=== PATIENT | female | born 1990 | race African-American/Black ===

== ENCOUNTER 2017-02-21 08:01 | Emergency (ER) | payer MEDICAID ==
[~2017-02-21] VITALS: Ht 157.5 cm; Wt 51.6 kg
[~2017-02-21 08:01] MED LIST: DOXY100V9 PO; HYDR1TAB12 PO
[2017-02-21] MEDS ORDERED: FAMOTIDINE 20 MG/2 ML ONE (08:37)
[2017-02-21] MEDS ORDERED: MORPHINE SULFATE 4 MG/ML, 1ML ONE (08:37)
[2017-02-21] MEDS ORDERED: ONDANSETRON 2MG/ML, 2ML ONE (08:37)
[2017-02-21 08:59] LABS: HEMOGLOBIN 14.5 g/dL (11.7-16.4)
[2017-02-21] MEDS ORDERED: ONDANSETRON 2MG/ML, 2ML IVPush ONE (09:00)
[2017-02-21] MEDS ORDERED: SODIUM CHLORIDE 0.9% 1,000ML IVBOLUS ONE (09:00)
[2017-02-21] MEDS ORDERED: MORPHINE SULFATE 4 MG/ML, 1ML IVPush PRN (09:00)
[2017-02-21] MEDS ORDERED: SODIUM CHLORIDE FLUSH 10ML SYR IVF ONE (09:00)
[2017-02-21] MEDS ORDERED: FAMOTIDINE 20 MG/2 ML IVP ONE (09:00)
[2017-02-21 09:13] LABS: ASPARTATE AMINO TRANSFERASE 18 U/L (15-37); BLOOD UREA NITROGEN 11 mg/dL (7-18)
[2017-02-21 11:41] VITALS: BP 115/60
== END 2017-02-21 11:44 | disposition home or self-care (01) ==
LOC: ED 09:52
DX: K29.00 Acute gastritis without bleeding (principal); R10.13 Epigastric pain; Z87.440 Personal history of urinary (tract) infections
CPT/HCPCS: 36415; 76700; 80053; 81001; 83690; 84703; 85025; 96361; 96374; 96375; 99285; J2405; J7030; S0028

== ENCOUNTER 2017-11-21 21:00 | Emergency (ER) | payer OTHER ==
[~2017-11-21] VITALS: Ht 154.9 cm; Wt 50.1 kg
[~2017-11-21 21:00] MED LIST changes: +BIRTH CONTROL PILLS PO; +OMEP-110 PO
[2017-11-21] MEDS ORDERED: SODIUM CHLORIDE FLUSH 10ML SYR IVF ONE (21:30)
[2017-11-21] MEDS ORDERED: ONDANSETRON 2MG/ML, 2ML IVPush ONE (21:30)
[2017-11-21] MEDS ORDERED: SODIUM CHLORIDE 0.9% 1,000ML IVBOLUS ONE (21:30)
[2017-11-21] MEDS ORDERED: ONDANSETRON 2MG/ML, 2ML ONE ×2 (21:52→23:56)
[2017-11-21] MEDS ORDERED: MORPHINE SULFATE 4 MG/ML, 1ML ONE (22:15)
[2017-11-21 22:16] LABS: BASOPHILS # (AUTO) 0.06 x10^3/uL (0-0.1); BASOPHILS % (AUTO) 1 % (0-1); EOSINOPHILS # (AUTO) 0.01 x10^3/uL (0-0.4); EOSINOPHILS % (AUTO) 0 % (1-7); LYMPHOCYTES # (AUTO) 1.15 x10^3/uL (1-3.4); LYMPHOCYTES % (AUTO) 10 % (22-44); MD NO; MEAN CORPUSCULAR HEMOGLOBIN 32.9 pg (27.0-34.8); MEAN CORPUSCULAR HGB CONC 33.8 g/dL (32.4-35.8); MEAN CORPUSCULAR VOLUME 97.4 fL (80-100); MEAN PLATELET VOLUME 8.5 fL (7.4-10.4); MONOCYTES % (AUTO) 5 % (2-9); NEUTROPHILS # (AUTO) 9.73 x10^3/uL (1.8-6.8); NEUTROPHILS % (AUTO) 84 % (42-75); PLATELET COUNT 199 x10^3/uL (130-400); RED BLOOD COUNT 4.53 x10^6/uL (3.82-5.3); RED CELL DISTRIBUTION WIDTH 12.5 % (9.6-15.2)
[2017-11-21] MEDS ORDERED: HYDROmorphone 2 MG/ML, 1ML ONE (22:18)
[2017-11-21 22:28] LABS: ALBUMIN 3.7 g/dL (3.4-5.0); ANION GAP 10 mmol/L (5-15); CALCIUM 8.8 mg/dL (8.5-10.1); CHLORIDE 103 mmol/L (98-107)
[2017-11-21] MEDS ORDERED: HYDROmorphone 1 MG/ML, 1ML IV ONE (22:30)
[2017-11-21 22:33] LABS: ALANINE AMINOTRANSFERASE 24 U/L (12-78); ALKALINE PHOSPHATASE 68 U/L (45-117); BILIRUBIN,TOTAL 0.3 mg/dL (0.2-1.0); TOTAL PROTEIN 7.6 g/dL (6.4-8.2)
[2017-11-21 22:36] LABS: CREATININE 0.74 mg/dL (0.55-1.02)
[2017-11-21] MEDS ORDERED: MAALOX/HYOSCYAMINE/LIDOCAINE 45 ML BTL PO ONE (23:30)
[2017-11-21] MEDS ORDERED: MAALOX/HYOSCYAMINE/LIDOCAINE 45 ML BTL ONE (23:31)
[2017-11-21] MEDS ORDERED: ZIPRASIDONE 20 MG INJ IM ONE (23:55)
[2017-11-22] MEDS ORDERED: ONDANSETRON 2MG/ML, 2ML IVPush ONE
[2017-11-22] MEDS ORDERED: ZIPRASIDONE 20 MG INJ IM ONE
[2017-11-22 01:08] LABS: MICROSCOPIC INDICATED
[2017-11-22 01:29] LABS: CULTURE INDICATED? NO
[2017-11-22 01:54] VITALS: BP 93/55
== END 2017-11-22 01:58 | disposition home or self-care (01) ==
LOC: ED 23:59
DX: E86.0 Dehydration (principal); R11.2 Nausea with vomiting, unspecified; R10.13 Epigastric pain
CPT/HCPCS: 36415; 80053; 81001; 83690; 84703; 85025; 96361; 96372; 96374; 96375; 96376; 99285; J1170; J2405; J3486; J7030

== ENCOUNTER 2017-11-22 05:12 | Emergency (ER) | payer SELFPAY ==
[~2017-11-22] VITALS: Ht 154.9 cm; Wt 51.1 kg
[2017-11-22] MEDS ORDERED: ONDANSETRON 2MG/ML, 2ML ONE (06:12)
[2017-11-22] MEDS ORDERED: MAALOX/HYOSCYAMINE/LIDOCAINE 45 ML BTL ONE (06:12)
[2017-11-22] MEDS ORDERED: LORazepam 2 MG/ML, 1ML ONE (06:13)
[2017-11-22] MEDS ORDERED: FAMOTIDINE 20 MG/2 ML ONE (06:13)
[2017-11-22] MEDS ORDERED: MAALOX/HYOSCYAMINE/LIDOCAINE 45 ML BTL PO ONE (06:30)
[2017-11-22] MEDS ORDERED: ONDANSETRON 2MG/ML, 2ML IVPush ONE (06:30)
[2017-11-22] MEDS ORDERED: LORazepam 2 MG/ML, 1ML IVPush ONE (06:30)
[2017-11-22] MEDS ORDERED: SODIUM CHLORIDE 0.9% 1,000ML IVBOLUS ONE (06:30)
[2017-11-22] MEDS ORDERED: FAMOTIDINE 20 MG/2 ML IVP ONE (06:30)
[2017-11-22] MEDS ORDERED: SODIUM CHLORIDE FLUSH 10ML SYR IVF ONE (06:30)
[2017-11-22 07:09] VITALS: BP 100/63
== END 2017-11-22 08:01 | disposition home or self-care (01) ==
LOC: ED 06:26
DX: K29.50 Unspecified chronic gastritis without bleeding (principal); F12.10 Cannabis abuse, uncomplicated
CPT/HCPCS: 76700; 93005; 96361; 96374; 96375; 99284; J2060; J2405; J7030; S0028

== ENCOUNTER 2019-12-17 00:46 | Emergency (ER) | payer MEDICAID ==
[~2019-12-17] VITALS: Ht 157.5 cm; Wt 65.0 kg
[~2019-12-17 00:46] MED LIST changes: -HYDR1TAB12 PO; +HYDR1TAB13 PO
--- NOTE | 2019-12-17 00:50 | NUR ---
TASK RN: CONCETTA DOMÍNGUEZ FROM HOME WHERE PT WAS FOUND BY FAMILY/SO UNARROUSABLE W/ RA OF 60%. GIVEN 0.5MG NARCAN W/ POSITIVE EFFECT. FSBS 145. PT ARRIVES A&OX4; SPEECH CLEAR AND MOVING ALL EXTREMITIES. DENIES N/V/PAIN. BP/SPO2/ECG MONITORING IN PLACE. SINUS TACH ON MONITOR. EKG COMPLETED UPON ARRIVAL. FAMILY/SO AT BEDSIDE. ERP IN FOR INITIAL ASSESSMENT. REPORT TO LOIDA BARRERA
[2019-12-17] MEDS ORDERED: NALOXONE 0.4 MG/ML, 1ML IVPush PRN (01:00)
[2019-12-17] MEDS ORDERED: SODIUM CHLORIDE 0.9% 1,000ML IVBOLUS ONE (01:00)
[2019-12-17] MEDS ORDERED: ONDANSETRON 2MG/ML, 2ML ONE (01:37)
[2019-12-17 01:40] VITALS: BP 117/83
[2019-12-17 01:47] LABS: BASOPHILS # (AUTO) 0.04 x10^3/uL (0-0.1); BASOPHILS % (AUTO) 0 % (0-1); EOSINOPHILS # (AUTO) 0.24 x10^3/uL (0-0.4); EOSINOPHILS % (AUTO) 2 % (1-7); LYMPHOCYTES # (AUTO) 2.27 x10^3/uL (1-3.4); LYMPHOCYTES % (AUTO) 18 % (22-44); MD NO; MEAN CORPUSCULAR HEMOGLOBIN 33.3 pg (27.0-34.8); MEAN CORPUSCULAR HGB CONC 33.6 g/dL (32.4-35.8); MEAN CORPUSCULAR VOLUME 99.2 fL (80-100); MEAN PLATELET VOLUME 7.8 fL (7.4-10.4); MONOCYTES # (AUTO) 0.72 x10^3/uL (0.2-0.8); MONOCYTES % (AUTO) 6 % (2-9); NEUTROPHILS # (AUTO) 9.73 x10^3/uL (1.8-6.8); NEUTROPHILS % (AUTO) 75 % (42-75); PLATELET COUNT 347 x10^3/uL (130-400); RED BLOOD COUNT 4.66 x10^6/uL (3.82-5.3); RED CELL DISTRIBUTION WIDTH 13.2 % (9.6-15.2)
[2019-12-17 01:58] LABS: ALANINE AMINOTRANSFERASE 21 U/L (12-78); ALBUMIN 3.9 g/dL (3.4-5.0); ANION GAP 9 mmol/L (5-15); CALCIUM 7.9 mg/dL (8.5-10.1); CHLORIDE 108 mmol/L (98-107)
[2019-12-17] MEDS ORDERED: ONDANSETRON 2MG/ML, 2ML IVPush ONE (02:00)
[2019-12-17 02:03] LABS: ALKALINE PHOSPHATASE 103 U/L (45-117); BILIRUBIN,TOTAL 0.2 mg/dL (0.2-1.0); CREATININE 0.91 mg/dL (0.55-1.02); TOTAL PROTEIN 8.1 g/dL (6.4-8.2)
[2019-12-17] MEDS ORDERED: PROMETHAZINE 25 MG/ML, 1ML ONE (02:19)
--- NOTE | 2019-12-17 02:25 | NUR ---
TASK RN: PT AMBULATED STEADILY TO BATHROOM TO PROVIDE UA. PT ATTEMPTED TO PROVIDE UA, UNSUCCESSFUL AT THIS TIME. PT W/ MULTIPLE EPISODES OF VOMITING. ERP AWARE. ORDERS RECEIVED. PT MEDICATED PER EMAR. IVF CONTINUES TO INFUSE
[2019-12-17] MEDS ORDERED: PROMETHAZINE 25 MG/ML, 1ML IM ONE (02:30)
[2019-12-17 03:29] LABS: AMPHETAMINE SCREEN, URINE Negative (Negative); BARBITURATE SCREEN, URINE Negative (Negative); BENZODIAZEPINE SCREEN, URINE Negative (Negative); CANNABINOID SCREEN, URINE Positive (Negative); COCAINE SCREEN, URINE Positive (Negative); METHADONE SCREEN, URINE Negative (Negative); OPIATE SCREEN, URINE Negative (Negative)
== END 2019-12-17 03:47 | disposition home or self-care (01) ==
LOC: ED 01:38
DX: T40.7X1A Poisoning by cannabis (derivatives), accidental (unintentional), initial encounter (principal); T40.5X1A Poisoning by cocaine, accidental (unintentional), initial encounter; F17.200 Nicotine dependence, unspecified, uncomplicated; Y92.009 Unspecified place in unspecified non-institutional (private) residence as the place of occurrence of the external cause
CPT/HCPCS: 36415; 71045; 80053; 80307; 84703; 85025; 93005; 96372; 96374; 99284; J2405; J2550; J7030

== ENCOUNTER 2019-12-19 23:40 | Emergency (ER) | payer MEDICAID ==
[~2019-12-19] VITALS: Ht 157.5 cm; Wt 62.3 kg
[2019-12-20] MEDS ORDERED: PROMETHAZINE 25 MG/ML, 1ML ONE (00:17)
[2019-12-20] MEDS ORDERED: FAMOTIDINE 20 MG/2 ML ONE (00:17)
[2019-12-20] MEDS ORDERED: MAALOX/HYOSCYAMINE/LIDOCAINE 45 ML BTL ONE (00:17)
[2019-12-20] MEDS ORDERED: PROMETHAZINE 25 MG/ML, 1ML IM ONE (00:30)
[2019-12-20] MEDS ORDERED: SODIUM CHLORIDE FLUSH 10ML SYR IVF ONE (00:30)
[2019-12-20] MEDS ORDERED: MAALOX/HYOSCYAMINE/LIDOCAINE 45 ML BTL PO ONE (00:30)
[2019-12-20] MEDS ORDERED: FAMOTIDINE 20 MG/2 ML IVPush ONE (00:30)
[2019-12-20 00:40] LABS: BASOPHILS # (AUTO) 0.01 x10^3/uL (0-0.1); BASOPHILS % (AUTO) 0 % (0-1); EOSINOPHILS % (AUTO) 0 % (1-7); LYMPHOCYTES # (AUTO) 0.71 x10^3/uL (1-3.4); LYMPHOCYTES % (AUTO) 9 % (22-44); MD NO; MEAN CORPUSCULAR HGB CONC 33.6 g/dL (32.4-35.8); MEAN CORPUSCULAR VOLUME 98.1 fL (80-100); MEAN PLATELET VOLUME 8.5 fL (7.4-10.4); MONOCYTES # (AUTO) 0.16 x10^3/uL (0.2-0.8); MONOCYTES % (AUTO) 2 % (2-9); NEUTROPHILS # (AUTO) 7.44 x10^3/uL (1.8-6.8); NEUTROPHILS % (AUTO) 90 % (42-75); PLATELET COUNT 330 x10^3/uL (130-400); RED BLOOD COUNT 4.66 x10^6/uL (3.82-5.3); RED CELL DISTRIBUTION WIDTH 12.6 % (9.6-15.2)
[2019-12-20 00:41] LABS: ALANINE AMINOTRANSFERASE 19 U/L (12-78); ALBUMIN 4.1 g/dL (3.4-5.0); ANION GAP 11 mmol/L (5-15); CALCIUM 9.2 mg/dL (8.5-10.1); CHLORIDE 106 mmol/L (98-107); CREATININE 0.87 mg/dL (0.55-1.02)
--- NOTE | 2019-12-20 00:41 | NUR ---
pt was in some distress with pain, repeatedly asking for pain medications. pt medicated for nausea and upset stomach. pt now resting on gurney with eyes closed in no distress. respirations even and unlabored. pt attached to bp and o2 monitors.
[2019-12-20 00:45] LABS: BILIRUBIN,TOTAL 0.5 mg/dL (0.2-1.0)
[2019-12-20 00:46] LABS: ALKALINE PHOSPHATASE 95 U/L (45-117); TOTAL PROTEIN 8.2 g/dL (6.4-8.2)
--- NOTE | 2019-12-20 01:25 | NUR ---
BREAK RN: PT. MEDICATED PER JAN. VS UPDATED. PT. MOANING IN PAIN, CONTINUES TO C/O NAUSEA BUT ABLE TO DRINK GI COCKTAIL WITHOUT VOMITING THUS FAR. MONITORS IN PLACE. CALL LIGHT IN REACH. FAMILY AT FOR SUPPORT. CHART UP FOR RECHECK BY ERP.
--- NOTE | 2019-12-20 01:45 | NUR ---
care transferred to poilna méndez
[2019-12-20] MEDS ORDERED: HYDROmorphone 2 MG/ML, 1ML ONE (01:53)
[2019-12-20] MEDS ORDERED: HYDROmorphone 2 MG/ML, 1ML IVPush ONE (02:00)
[2019-12-20] MEDS ORDERED: SODIUM CHLORIDE 0.9%, 500ML IVBOLUS ONE (02:00)
--- NOTE | 2019-12-20 02:01 | NUR ---
REPORT RECEIVED FROM LOIDA COREAS. PLAN OF CARE DISCUSSED. PATIENT MEDICATED PER EMAR, TOELRATED WELL. IVF RUNNING AT THIS TIME
--- NOTE | 2019-12-20 02:04 | NUR ---
PATIENT DESAT TO 85% AFTER PAIN MEDICATION GIVEN, PLACED ON 2L NC. UP TO 99%. VSS, NAD, PATIENT RESTING ON GURNEY.
--- NOTE | 2019-12-20 02:50 | NUR ---
IVF RUNNING, ARM REPOSITIONED TO ALLOW FOR FLUIDS TO RUN. VSS, NAD, DENIES NEEDS AT THIS TIME. CALL LIGHT IN REACH
[2019-12-20 03:06] VITALS: BP 106/55
--- NOTE | 2019-12-20 03:06 | NUR ---
PATIENT ABLE TO KEEP FLUIDS DOWN
== END 2019-12-20 03:41 | disposition home or self-care (01) ==
LOC: ED 12-20 00:03
DX: K29.20 Alcoholic gastritis without bleeding (principal); R11.2 Nausea with vomiting, unspecified; F10.10 Alcohol abuse, uncomplicated; Y90.0 Blood alcohol level of less than 20 mg/100 ml
CPT/HCPCS: 36415; 80053; 83690; 84703; 85025; 96361; 96372; 96374; 96375; 99283; J1170; J2550; J3490; J7040

== ENCOUNTER 2019-12-20 18:24 | Inpatient (IN) | payer MEDICAID ==
[~2019-12-20] VITALS: Ht 157.5 cm; Wt 64.4 kg
--- NOTE | 2019-12-20 19:00 | NUR ---
Pt ambulatory to room. Pt reports abd pain (epigastric), nausea and vomiting. Pt report she was here yesterday and has gastritis. Pt friend reports diaudid was the only medication that worked. Pt reports she didn't get any imaging done yesterday. Pt is alert and oriented. Pt abd soft with hypoactive BS. Pt changing into gown. Urine sample at bedside.
[2019-12-20] MEDS ORDERED: HYDROmorphone 2 MG/ML, 1ML IVPush PRN (19:30)
[2019-12-20] MEDS ORDERED: ONDANSETRON 2MG/ML, 2ML IVPush ONE (19:30)
[2019-12-20] MEDS ORDERED: SODIUM CHLORIDE 0.9% 1,000ML IVBOLUS ONE (19:30)
[2019-12-20] MEDS ORDERED: SODIUM CHLORIDE FLUSH 10ML SYR IVF ONE (19:30)
[2019-12-20] MEDS ORDERED: ONDANSETRON 2MG/ML, 2ML ONE (19:39)
[2019-12-20] MEDS ORDERED: HYDROmorphone 1 MG/ML, 1ML INJ ONE (19:40)
[2019-12-20 19:44] LABS: BASOPHILS # (AUTO) 0.02 x10^3/uL (0-0.1); BASOPHILS % (AUTO) 0 % (0-1); EOSINOPHILS # (AUTO) 0.01 x10^3/uL (0-0.4); EOSINOPHILS % (AUTO) 0 % (1-7); LYMPHOCYTES # (AUTO) 1.27 x10^3/uL (1-3.4); LYMPHOCYTES % (AUTO) 12 % (22-44); MD NO; MEAN CORPUSCULAR HEMOGLOBIN 33.3 pg (27.0-34.8); MEAN CORPUSCULAR HGB CONC 33.7 g/dL (32.4-35.8); MEAN CORPUSCULAR VOLUME 98.6 fL (80-100); MEAN PLATELET VOLUME 8.3 fL (7.4-10.4); MONOCYTES % (AUTO) 4 % (2-9); NEUTROPHILS # (AUTO) 9.38 x10^3/uL (1.8-6.8); NEUTROPHILS % (AUTO) 85 % (42-75); PLATELET COUNT 317 x10^3/uL (130-400); RED BLOOD COUNT 4.41 x10^6/uL (3.82-5.3); RED CELL DISTRIBUTION WIDTH 12.9 % (9.6-15.2)
[2019-12-20 19:51] LABS: ALBUMIN 3.8 g/dL (3.4-5.0); ANION GAP 8 mmol/L (5-15); CALCIUM 8.6 mg/dL (8.5-10.1); CHLORIDE 108 mmol/L (98-107)
--- NOTE | 2019-12-20 19:53 | NUR ---
PIV started. Pt medicated per JAN. Pt placed on pulse ox/HR monitor. Pt does report marijuana use.
[2019-12-20 19:57] LABS: ALANINE AMINOTRANSFERASE 22 U/L (12-78); ALKALINE PHOSPHATASE 81 U/L (45-117); BILIRUBIN,TOTAL 0.5 mg/dL (0.2-1.0); CREATININE 0.86 mg/dL (0.55-1.02); TOTAL PROTEIN 7.5 g/dL (6.4-8.2)
[2019-12-20 20:05] LABS: CULTURE INDICATED? YES; MICROSCOPIC INDICATED
[2019-12-20] MEDS ORDERED: CEFTRIAXONE PMX 1GM/50ML 50 ML ONE (20:42)
--- NOTE | 2019-12-20 20:50 | NUR ---
Pt to CT.
--- NOTE | 2019-12-20 20:50 | NUR ---
Pt resting quietly on gurney. Pt reports she feels better. IV antibiotics started. VS retaken.
[2019-12-20] MEDS ORDERED: CEFTRIAXONE PMX 1GM/50ML 50 ML IV ONE (21:00)
[2019-12-20] MEDS ORDERED: OMNIPAQUE 350 MG/ML, 100ML BOTTLE ONE (21:02)
--- NOTE | 2019-12-20 21:12 | NUR ---
Pt returned from CT.
--- NOTE | 2019-12-20 21:20 | NUR ---
Pt given ice chips by
--- NOTE | 2019-12-20 21:41 | NUR ---
Admitting MD at bedside.
--- NOTE | 2019-12-20 21:48 | NUR ---
Report given to LOIDA Fleming
[2019-12-20] MEDS ORDERED: PROMETHAZINE 25 MG/ML, 1ML IM PRN (22:00)
[2019-12-20] MEDS ORDERED: GABAPENTIN 300 MG CAPSULE PO PRN (22:00)
[2019-12-20] MEDS ORDERED: POTASSIUM CHLORIDE 40 MEQ in SODIUM CHLORIDE 0.9% 500 ML IV ONE (22:00)
[2019-12-20] MEDS ORDERED: ACETAMINOPHEN 325 MG TABLET PO PRN (22:00)
[2019-12-20] MEDS ORDERED: ONDANSETRON 2MG/ML, 2ML IVPush PRN (22:00)
--- NOTE | 2019-12-20 22:01 | NUR ---
Pt alert, oriented and resting on gurney at time of d/c.
[2019-12-20 22:05] VITALS: BP 99/59
[2019-12-20 22:32] LABS: AMPHETAMINE SCREEN, URINE Negative (Negative); BARBITURATE SCREEN, URINE Negative (Negative); BENZODIAZEPINE SCREEN, URINE Positive (Negative); CANNABINOID SCREEN, URINE Positive (Negative); COCAINE SCREEN, URINE Positive (Negative); METHADONE SCREEN, URINE Negative (Negative); OPIATE SCREEN, URINE Positive (Negative)
[2019-12-21 00:30] VITALS: BP 100/64
[2019-12-21] MEDS: HYDROmorphone 2 MG/ML, 1ML IVPush PRN ×2 (02:16→07:53)
[2019-12-21] MEDS: LACTATED RINGERS 1,000 ML IV SCH ×2 (05:28→15:28)
[2019-12-21 05:42] LABS: MEAN CORPUSCULAR HEMOGLOBIN 33.3 pg (27.0-34.8); MEAN CORPUSCULAR HGB CONC 33.6 g/dL (32.4-35.8); MEAN CORPUSCULAR VOLUME 99.2 fL (80-100); MEAN PLATELET VOLUME 8.6 fL (7.4-10.4); PLATELET COUNT 282 x10^3/uL (130-400); RED BLOOD COUNT 3.85 x10^6/uL (3.82-5.3); RED CELL DISTRIBUTION WIDTH 12.9 % (9.6-15.2)
[2019-12-21 05:49] LABS: ANION GAP 5 mmol/L (5-15); CALCIUM 7.5 mg/dL (8.5-10.1); CHLORIDE 112 mmol/L (98-107); CREATININE 0.72 mg/dL (0.55-1.02)
[2019-12-21 06:06] LABS: MD SCAN
[2019-12-21 06:07] LABS: BASOPHILS # (AUTO) 0.03 x10^3/uL (0-0.1); BASOPHILS % (AUTO) 0 % (0-1); EOSINOPHILS % (AUTO) 1 % (1-7); LYMPHOCYTES # (AUTO) 2.93 x10^3/uL (1-3.4); LYMPHOCYTES % (AUTO) 33 % (22-44); MONOCYTES # (AUTO) 0.61 x10^3/uL (0.2-0.8); MONOCYTES % (AUTO) 7 % (2-9); NEUTROPHILS # (AUTO) 5.12 x10^3/uL (1.8-6.8); NEUTROPHILS % (AUTO) 58 % (42-75)
[2019-12-21] MEDS: FAMOTIDINE 20 MG TABLET PO SCH ×2 (07:53→20:41)
[2019-12-21] MEDS: SENNA/DOCUSATE TABLET PO SCH (07:53)
[2019-12-21 09:37] VITALS: BP 106/64
[2019-12-21 12:52] VITALS: BP 109/71
[2019-12-21] MEDS: KETOROLAC 30 MG/1 ML IV PRN (15:29)
[2019-12-21] MEDS: OMEPRAZOLE 20 MG CAPSULE.DR PO SCH (15:29)
[2019-12-21 19:46] VITALS: BP 104/70
[2019-12-21] MEDS: CALCIUM CARBONATE 500 MG TABLET PO SCH (20:40)
[2019-12-21] MEDS ORDERED: CEFTRIAXONE PMX 1GM/50ML 50 ML IV SCH (21:00)
[2019-12-21] MEDS ORDERED: LACTATED RINGERS 1,000 ML IV SCH (22:00)
[2019-12-22 01:47] VITALS: BP 101/65
[2019-12-22 05:30] LABS: CHLORIDE 113 mmol/L (98-107)
[2019-12-22] MEDS: OMEPRAZOLE 20 MG CAPSULE.DR PO SCH (05:32)
[2019-12-22 05:39] LABS: ALANINE AMINOTRANSFERASE 12 U/L (12-78); ALBUMIN 2.9 g/dL (3.4-5.0); ALKALINE PHOSPHATASE 65 U/L (45-117); ANION GAP 5 mmol/L (5-15); BILIRUBIN,TOTAL 0.4 mg/dL (0.2-1.0); CALCIUM 7.9 mg/dL (8.5-10.1); CREATININE 0.72 mg/dL (0.55-1.02)
[2019-12-22 05:46] LABS: BASOPHILS # (AUTO) 0.02 x10^3/uL (0-0.1); BASOPHILS % (AUTO) 0 % (0-1); EOSINOPHILS # (AUTO) 0.14 x10^3/uL (0-0.4); EOSINOPHILS % (AUTO) 2 % (1-7); LYMPHOCYTES # (AUTO) 3.05 x10^3/uL (1-3.4); LYMPHOCYTES % (AUTO) 48 % (22-44); MD NO; MEAN CORPUSCULAR HEMOGLOBIN 33.3 pg (27.0-34.8); MEAN CORPUSCULAR HGB CONC 33.3 g/dL (32.4-35.8); MEAN CORPUSCULAR VOLUME 100.1 fL (80-100); MEAN PLATELET VOLUME 8.2 fL (7.4-10.4); MONOCYTES # (AUTO) 0.47 x10^3/uL (0.2-0.8); MONOCYTES % (AUTO) 7 % (2-9); NEUTROPHILS # (AUTO) 2.74 x10^3/uL (1.8-6.8); NEUTROPHILS % (AUTO) 43 % (42-75); PLATELET COUNT 291 x10^3/uL (130-400); RED BLOOD COUNT 3.99 x10^6/uL (3.82-5.3); RED CELL DISTRIBUTION WIDTH 12.4 % (9.6-15.2)
[2019-12-22 07:42] VITALS: BP 113/69
[2019-12-22] MEDS: SENNA/DOCUSATE TABLET PO SCH (08:01)
[2019-12-22] MEDS: CALCIUM CARBONATE 500 MG TABLET PO SCH (08:20)
[2019-12-22] MEDS: FAMOTIDINE 20 MG TABLET PO SCH (08:20)
[2019-12-22] MEDS: KETOROLAC 30 MG/1 ML IV PRN (08:20)
[2019-12-22] MEDS ORDERED: SULF1TAB24 PO (12:21)
[2019-12-22 13:25] VITALS: BP 130/70
== END 2019-12-22 13:49 | disposition home or self-care (01) | DRG 690 ==
LOC: ED 20:08 → EDIP 21:14 → 3N 22:03 → DCLOUNGE 12-22 13:43
PROVIDERS: ADMIT Family Medicine; ATTEND Family Medicine
DX: N30.01 Acute cystitis with hematuria (principal); M62.82 Rhabdomyolysis; E83.51 Hypocalcemia; E86.0 Dehydration; E87.6 Hypokalemia; F14.90 Cocaine use, unspecified, uncomplicated; F12.90 Cannabis use, unspecified, uncomplicated; F19.10 Other psychoactive substance abuse, uncomplicated; Z72.89 Other problems related to lifestyle
CPT/HCPCS: 36415; 74177; 80048; 80053; 80307; 81001; 82550; 83690; 83735; 84100; 84703; 85025; 87086; 93005; 96374; 96375; G0378; J0696; J1170; J1885; J2405; J3480; Q9967; J7030; J7040; J7120

== ENCOUNTER 2020-03-03 07:13 | Emergency (ER) | payer MEDICAID ==
[~2020-03-03] VITALS: Ht 154.9 cm; Wt 59.0 kg
[~2020-03-03 07:13] MED LIST changes: +SULF1TAB24 PO
[2020-03-03] MEDS ORDERED: ONDANSETRON ODT 4 MG ONE (07:24)
[2020-03-03] MEDS ORDERED: ONDANSETRON ODT 4 MG PO ONE (07:30)
[2020-03-03] MEDS ORDERED: FAMOTIDINE 20 MG TABLET PO ONE (07:30)
[2020-03-03] MEDS ORDERED: MAALOX/HYOSCYAMINE/LIDOCAINE 45 ML BTL PO ONE (07:30)
--- NOTE | 2020-03-03 08:23 | NUR ---
AQUATIC PERFORMER: PT TO ROOM FROM LOBBY VIA
[2020-03-03 08:25] LABS: BASOPHILS % (AUTO) 1 % (0-1); EOSINOPHILS % (AUTO) 0 % (1-7); LYMPHOCYTES # (AUTO) 0.65 x10^3/uL (1-3.4); LYMPHOCYTES % (AUTO) 4 % (22-44); MD NO; MEAN CORPUSCULAR HEMOGLOBIN 33.8 pg (27.0-34.8); MEAN CORPUSCULAR HGB CONC 34.1 g/dL (32.4-35.8); MEAN CORPUSCULAR VOLUME 99.2 fL (80-100); MEAN PLATELET VOLUME 7.6 fL (7.4-10.4); MONOCYTES # (AUTO) 0.62 x10^3/uL (0.2-0.8); MONOCYTES % (AUTO) 4 % (2-9); NEUTROPHILS % (AUTO) 91 % (42-75); PLATELET COUNT 379 x10^3/uL (130-400); RED BLOOD COUNT 4.75 x10^6/uL (3.82-5.3); RED CELL DISTRIBUTION WIDTH 13.6 % (9.6-15.2)
[2020-03-03] MEDS ORDERED: MAALOX/HYOSCYAMINE/LIDOCAINE 45 ML BTL ONE (08:26)
[2020-03-03] MEDS ORDERED: FAMOTIDINE 20 MG TABLET ONE (08:26)
[2020-03-03 08:31] LABS: ALANINE AMINOTRANSFERASE 33 U/L (12-78); ALBUMIN 4.7 g/dL (3.4-5.0); ANION GAP 11 mmol/L (5-15); CALCIUM 9.4 mg/dL (8.5-10.1); CHLORIDE 101 mmol/L (98-107); CREATININE 0.91 mg/dL (0.55-1.02)
[2020-03-03 08:36] LABS: ALKALINE PHOSPHATASE 108 U/L (45-117); BILIRUBIN,TOTAL 0.9 mg/dL (0.2-1.0); TOTAL PROTEIN 8.9 g/dL (6.4-8.2)
--- NOTE | 2020-03-03 08:38 | NUR ---
pt here with vomiting and abd. pain for 1 day. Pt writhing in bed and hyperventilating. Pt educated on slowing breathing. Denies any past medical hx. Pt making vomiting noises but not vomiting. Took medication without problems. Pt aware of need for UA.
--- NOTE | 2020-03-03 08:46 | NUR ---
REPORT RECEIVED FROM LOIDA CHAVARRIA. [facility]
[2020-03-03 09:03] LABS: MICROSCOPIC INDICATED
[2020-03-03] MEDS ORDERED: HALOPERIDOL 5 MG/ML ONE (09:23)
[2020-03-03] MEDS ORDERED: METOCLOPRAMIDE 5 MG/ML, 2ML ONE (09:23)
[2020-03-03] MEDS ORDERED: HALOPERIDOL 5 MG/ML IV ONE (09:30)
[2020-03-03] MEDS ORDERED: METOCLOPRAMIDE 5 MG/ML, 2ML IVPush ONE (09:30)
[2020-03-03 09:34] LABS: CULTURE INDICATED? NO
--- NOTE | 2020-03-03 09:42 | NUR ---
PT MEDICATED PER MAR
[2020-03-03 09:57] VITALS: BP 106/62
[2020-03-03] MEDS ORDERED: SODIUM CHLORIDE FLUSH 10ML SYR IVF ONE (10:00)
[2020-03-03] MEDS ORDERED: SODIUM CHLORIDE 0.9% 1,000ML IVBOLUS ONE (10:00)
== END 2020-03-03 11:23 | disposition home or self-care (01) ==
LOC: ED 09:06
DX: R10.13 Epigastric pain (principal); R11.2 Nausea with vomiting, unspecified
CPT/HCPCS: 36415; 80053; 81001; 84703; 85025; 96361; 96374; 96375; 99284; J1630; J2765; J7030; Q0162

== ENCOUNTER 2020-05-09 11:23 | Emergency (ER) | payer MEDICAID ==
[~2020-05-09] VITALS: Ht 157.5 cm; Wt 59.0 kg
[2020-05-09] MEDS ORDERED: MORPHINE SULFATE 4 MG/ML, 1ML ONE (11:59)
[2020-05-09] MEDS ORDERED: ONDANSETRON 2MG/ML, 2ML ONE (11:59)
[2020-05-09] MEDS ORDERED: SODIUM CHLORIDE 0.9% 1,000ML IVBOLUS ONE (12:00)
[2020-05-09] MEDS ORDERED: FAMOTIDINE 20 MG/2 ML IV ONE (12:00)
[2020-05-09] MEDS ORDERED: ONDANSETRON 2MG/ML, 2ML IVPush ONE (12:00)
[2020-05-09] MEDS ORDERED: MORPHINE SULFATE 4 MG/ML, 1ML IVPush PRN (12:00)
[2020-05-09] MEDS ORDERED: FAMOTIDINE 20 MG/2 ML ONE (12:12)
[2020-05-09 12:15] LABS: BASOPHILS # (AUTO) 0.02 x10^3/uL (0-0.1); BASOPHILS % (AUTO) 0 % (0-1); EOSINOPHILS # (AUTO) 0.03 x10^3/uL (0-0.4); EOSINOPHILS % (AUTO) 0 % (1-7); LYMPHOCYTES # (AUTO) 0.66 x10^3/uL (1-3.4); LYMPHOCYTES % (AUTO) 9 % (22-44); MD NO; MEAN CORPUSCULAR HGB CONC 33.4 g/dL (32.4-35.8); MEAN CORPUSCULAR VOLUME 101.8 fL (80-100); MEAN PLATELET VOLUME 7.9 fL (7.4-10.4); MONOCYTES # (AUTO) 0.16 x10^3/uL (0.2-0.8); MONOCYTES % (AUTO) 2 % (2-9); NEUTROPHILS # (AUTO) 6.93 x10^3/uL (1.8-6.8); NEUTROPHILS % (AUTO) 89 % (42-75); PLATELET COUNT 333 x10^3/uL (130-400); RED BLOOD COUNT 5.04 x10^6/uL (3.82-5.3); RED CELL DISTRIBUTION WIDTH 13.9 % (9.6-15.2)
--- NOTE | 2020-05-09 12:22 | NUR ---
PT HAS CO ABDOMINAL PAIN W N/V. WAS SEEN [facility]. SYMPTOMS WORSENED. TODD CP, SOB OR COUGH. MEDICATED PER ORDERS.
[2020-05-09] MEDS ORDERED: HYDROmorphone 1 MG/ML, 1ML INJ ONE (12:25)
[2020-05-09 12:29] LABS: ALANINE AMINOTRANSFERASE 30 U/L (12-78); ALBUMIN 4.1 g/dL (3.4-5.0); ANION GAP 9 mmol/L (5-15); CALCIUM 8.8 mg/dL (8.5-10.1); CHLORIDE 107 mmol/L (98-107)
[2020-05-09] MEDS ORDERED: HYDROmorphone 2 MG/ML, 1ML IVPush PRN (12:30)
[2020-05-09 12:33] LABS: ALKALINE PHOSPHATASE 77 U/L (45-117); BILIRUBIN,TOTAL 0.8 mg/dL (0.2-1.0); TOTAL PROTEIN 7.9 g/dL (6.4-8.2)
--- NOTE | 2020-05-09 12:43 | NUR ---
PT HAS CO OF PAIN AFTER MEDICATION. DISCUSSED W EDD
[2020-05-09] MEDS ORDERED: MAALOX/HYOSCYAMINE/LIDOCAINE 45 ML BTL PO ONE (13:00)
[2020-05-09] MEDS ORDERED: HALOPERIDOL 5 MG/ML IV ONE (13:00)
[2020-05-09] MEDS ORDERED: MAALOX/HYOSCYAMINE/LIDOCAINE 45 ML BTL ONE (13:03)
[2020-05-09] MEDS ORDERED: HALOPERIDOL 5 MG/ML ONE (13:03)
--- NOTE | 2020-05-09 13:23 | NUR ---
PT STATES GI COCKTAIL HELPED W DISCOMFORT.
--- NOTE | 2020-05-09 14:29 | NUR ---
Patient/Caregiver given discharge instructions and they have confirmed that they understand the instructions. Patient ambulatory with steady gait.
[2020-05-09 14:30] VITALS: BP 120/81
== END 2020-05-09 14:40 ==
LOC: ED 13:24
DX: G89.29 Other chronic pain (principal); R10.13 Epigastric pain; R11.2 Nausea with vomiting, unspecified
CPT/HCPCS: 36415; 76700; 80053; 83690; 84703; 85025; 96361; 96374; 96375; 99284; J1170; J1630; J2270; J2405; J3490; J7030

== ENCOUNTER 2020-05-26 17:27 | Emergency (ER) | payer MEDICAID ==
[~2020-05-26] VITALS: Ht 154.9 cm; Wt 56.6 kg
[2020-05-26 18:19] LABS: BASOPHILS # (AUTO) 0.02 x10^3/uL (0-0.1); BASOPHILS % (AUTO) 0 % (0-1); EOSINOPHILS % (AUTO) 0 % (1-7); LYMPHOCYTES # (AUTO) 0.83 x10^3/uL (1-3.4); LYMPHOCYTES % (AUTO) 10 % (22-44); MD NO; MEAN CORPUSCULAR HEMOGLOBIN 33.3 pg (27.0-34.8); MEAN CORPUSCULAR HGB CONC 32.5 g/dL (32.4-35.8); MEAN CORPUSCULAR VOLUME 102.3 fL (80-100); MEAN PLATELET VOLUME 7.6 fL (7.4-10.4); MONOCYTES # (AUTO) 0.16 x10^3/uL (0.2-0.8); MONOCYTES % (AUTO) 2 % (2-9); NEUTROPHILS # (AUTO) 7.17 x10^3/uL (1.8-6.8); NEUTROPHILS % (AUTO) 88 % (42-75); PLATELET COUNT 388 x10^3/uL (130-400); RED BLOOD COUNT 5.21 x10^6/uL (3.82-5.3); RED CELL DISTRIBUTION WIDTH 13.5 % (9.6-15.2)
[2020-05-26 18:25] LABS: ALBUMIN 4.4 g/dL (3.4-5.0); ANION GAP 8 mmol/L (5-15); CALCIUM 9.9 mg/dL (8.5-10.1); CHLORIDE 104 mmol/L (98-107)
[2020-05-26 18:32] LABS: ALANINE AMINOTRANSFERASE 31 U/L (12-78); ALKALINE PHOSPHATASE 111 U/L (45-117); BILIRUBIN,TOTAL 1.1 mg/dL (0.2-1.0); CREATININE 1.02 mg/dL (0.55-1.02); TOTAL PROTEIN 8.9 g/dL (6.4-8.2)
--- NOTE | 2020-05-26 18:47 | NUR ---
Pt to room from lobby
[2020-05-26] MEDS ORDERED: SODIUM CHLORIDE FLUSH 10ML SYR IVF ONE ×2 (19:00→19:30)
--- NOTE | 2020-05-26 19:24 | NUR ---
THIS PT IS COMING FROM HOME FOR ABD PAIN, PT STATES MILD NAUSEA NO VOMITTING SINCE EARLY THIS AM. PT HAS A HX OF CYCLIC VOMITTING RELATED TO MARIJUANNA, AND ACID REFLUX FOR WHICH SHE TAKES HER PRESCRIBED PEPCID. PT IS LAYING IN BED, SIDE RAILS UP, CALL LIGHT WITHIN REACH AND CONNECTED TO BP AND O2 MONITORS. SIGNIFICANT OTHER AT THE BEDSIDE.
[2020-05-26] MEDS ORDERED: HALOPERIDOL 5 MG/ML IM ONE (19:30)
[2020-05-26] MEDS ORDERED: DIPHENHYDRAMINE 50 MG/ML, 1ML IVPush ONE (19:30)
[2020-05-26] MEDS ORDERED: SODIUM CHLORIDE 0.9% 1,000ML IVBOLUS ONE (19:30)
[2020-05-26] MEDS ORDERED: DIPHENHYDRAMINE 50 MG/ML, 1ML ONE (19:37)
[2020-05-26] MEDS ORDERED: HALOPERIDOL 5 MG/ML ONE (19:37)
--- NOTE | 2020-05-26 19:48 | NUR ---
PT WRITHING IN PAIN ON GURNEY. PIV: 20G RT WRIST INITIATED EARLIER. HALDOL GIVEN IM. NS BOLUS HUNG. BENADRYL GIVEN. PT'S BOYFRIEND IN ROOM. SIDE RAILS UP X2, CALL LIGHT W/IN REACH.
[2020-05-26] MEDS ORDERED: OMEP20TA62 PO (19:51)
--- NOTE | 2020-05-26 19:52 | NUR ---
TO XR PER ALEXANDRA
--- NOTE | 2020-05-26 20:11 | NUR ---
AMBULATORY TO & FROM [place] [facility] W/OUT INCIDENT; GAIT STEADY. VOIDED SPECIMEN PROVIDED: CLEAR, NICOLE.
--- NOTE | 2020-05-26 20:17 | NUR ---
REPORT RECEIVED FROM LOIDA ROBERTS. THIS RN TO ASSUME FULL CARE.
[2020-05-26 20:27] LABS: MICROSCOPIC INDICATED
--- NOTE | 2020-05-26 20:31 | NUR ---
PT SLEEPING, VSS, RESPIRATIONS EVEN AND UNLABORED, CONNECTED TO BP AND O2 MONITORS, SIDE RAILS UP, CALL LIGHT WITHIN REACH. BF REMAINS AT BEDSIDE.
[2020-05-26 20:32] VITALS: BP 106/65
--- NOTE | 2020-05-26 20:47 | NUR ---
REPORT GIVEN TO LOIDA HILL; TO ASSUME FULL CARE.
--- NOTE | 2020-05-26 20:48 | NUR ---
REPORT RECEIVED FROM LOIDA VIRK. ASSUMED CARE
== END 2020-05-26 21:27 ==
LOC: ED 21:21
DX: R10.84 Generalized abdominal pain (principal); R11.2 Nausea with vomiting, unspecified; R19.7 Diarrhea, unspecified; R00.0 Tachycardia, unspecified
CPT/HCPCS: 36415; 74021; 80053; 81001; 83690; 84703; 85025; 96361; 96372; 96374; 99284; J1200; J1630; J7030

== ENCOUNTER 2020-09-09 17:40 | Emergency (ER) | payer MEDICAID ==
[~2020-09-09] VITALS: Ht 157.5 cm; Wt 61.2 kg
[~2020-09-09 17:40] MED LIST changes: +OMEP20TA62 PO
[2020-09-09] MEDS ORDERED: LORazepam 2 MG/ML, 1ML IVPush ONE (19:00)
[2020-09-09] MEDS ORDERED: ONDANSETRON 2MG/ML, 2ML ONE (19:00)
[2020-09-09] MEDS ORDERED: SODIUM CHLORIDE FLUSH 10ML SYR IVF ONE (19:00)
[2020-09-09] MEDS ORDERED: ONDANSETRON 2MG/ML, 2ML IVPush ONE (19:00)
[2020-09-09] MEDS ORDERED: KETOROLAC 30 MG/1 ML ONE (19:00)
[2020-09-09] MEDS ORDERED: HYDROmorphone 2 MG/ML, 1ML IVPush PRN (19:00)
[2020-09-09] MEDS ORDERED: KETOROLAC 30 MG/1 ML IVPush ONE (19:00)
[2020-09-09] MEDS ORDERED: LORazepam 2 MG/ML, 1ML ONE (19:01)
--- NOTE | 2020-09-09 19:06 | NUR ---
C/O RLQ ABD PAIN X4 DAYS, PT REPORTS WAS SEEN IN ED IN [place] AND WAS TOLD SHE HAD A CYST, INCREASE PAIN TODAY. PT MEDICATED PER JAN.
[2020-09-09 19:07] LABS: BASOPHILS % (AUTO) 1 % (0-1); EOSINOPHILS % (AUTO) 1 % (1-7); LYMPHOCYTES % (AUTO) 24 % (22-44); MEAN CORPUSCULAR HEMOGLOBIN 33.4 pg (27.0-34.8); MEAN CORPUSCULAR HGB CONC 33.9 g/dL (32.4-35.8); MEAN PLATELET VOLUME 7.9 fL (7.4-10.4); MONOCYTES % (AUTO) 7 % (2-9); NEUTROPHILS % (AUTO) 68 % (42-75); PLATELET COUNT 328 x10^3/uL (130-400); RED BLOOD COUNT 4.61 x10^6/uL (3.82-5.3); RED CELL DISTRIBUTION WIDTH 12.3 % (9.6-15.2)
[2020-09-09 19:10] LABS: MD NO
[2020-09-09 19:16] LABS: ALANINE AMINOTRANSFERASE 22 U/L (12-78); ALBUMIN 4.2 g/dL (3.4-5.0); ANION GAP 7 mmol/L (5-15); CALCIUM 8.9 mg/dL (8.5-10.1); CHLORIDE 104 mmol/L (98-107)
[2020-09-09 19:21] LABS: ALKALINE PHOSPHATASE 78 U/L (45-117); BILIRUBIN,TOTAL 0.3 mg/dL (0.2-1.0)
[2020-09-09] MEDS ORDERED: HALOPERIDOL 5 MG/ML IM ONE (19:30)
[2020-09-09] MEDS ORDERED: HALOPERIDOL 5 MG/ML ONE (20:02)
--- NOTE | 2020-09-09 20:05 | NUR ---
PT TRANSPORTED TO US.
[2020-09-09] MEDS ORDERED: HYDROmorphone 1 MG/ML, 1ML INJ ONE (20:39)
[2020-09-09] MEDS ORDERED: HYDROmorphone 2 MG/ML, 1ML ONE (20:42)
--- NOTE | 2020-09-09 20:46 | NUR ---
UNABLE TO LEAVE URINE SAMPLE AT THIS TIME.
[2020-09-09 21:15] LABS: MICROSCOPIC NOT IND
[2020-09-09 21:45] VITALS: BP 90/36
== END 2020-09-09 22:22 | disposition home or self-care (01) ==
LOC: ED 21:13
DX: N83.291 Other ovarian cyst, right side (principal)
CPT/HCPCS: 36415; 76830; 80053; 81003; 83690; 84703; 85025; 96372; 96374; 96375; 99285; J1170; J1630; J1885; J2060; J2405

== ENCOUNTER 2021-02-19 15:12 | Emergency (ER) | payer MEDICAID ==
[~2021-02-19] VITALS: Ht 154.9 cm; Wt 56.2 kg
--- NOTE | 2021-02-19 15:43 | NUR ---
Pt arrived with complaints of vomitting x20 today after smoking marajuana. Pt crying, moving uncontrollably in pain, and screaming. Placed on BP and O2 monitors. EMT at bedside to start IV. VSS. Speaking in full sentences and coorporative.
--- NOTE | 2021-02-19 15:47 | NUR ---
Pt made aware of need for urine sample.
[2021-02-19] MEDS ORDERED: PROCHLORPERAZINE 5 MG/ML, 2ML ONE (15:54)
[2021-02-19] MEDS ORDERED: DIPHENHYDRAMINE 50 MG/ML, 1ML ONE (15:54)
[2021-02-19] MEDS ORDERED: SODIUM CHLORIDE FLUSH 10ML SYR IVF ONE (16:00)
[2021-02-19] MEDS ORDERED: PROCHLORPERAZINE 5 MG/ML, 2ML IVPush ONE (16:00)
[2021-02-19] MEDS ORDERED: SODIUM CHLORIDE 0.9% 1,000ML IVBOLUS ONE (16:00)
[2021-02-19] MEDS ORDERED: DIPHENHYDRAMINE 50 MG/ML, 1ML IVPush ONE (16:00)
--- NOTE | 2021-02-19 16:01 | NUR ---
Pt medicated per MAR, given additional warm bkanket for comfort.
[2021-02-19 16:07] LABS: BASOPHILS % (AUTO) 1 % (0-1); EOSINOPHILS % (AUTO) 0 % (1-7); LYMPHOCYTES % (AUTO) 11 % (22-44); MEAN CORPUSCULAR HEMOGLOBIN 34.3 pg (27.0-34.8); MEAN CORPUSCULAR HGB CONC 34.2 g/dL (32.4-35.8); MEAN PLATELET VOLUME 7.6 fL (7.4-10.4); MONOCYTES % (AUTO) 5 % (2-9); NEUTROPHILS % (AUTO) 83 % (42-75); PLATELET COUNT 300 x10^3/uL (130-400); RED BLOOD COUNT 4.58 x10^6/uL (3.82-5.3); RED CELL DISTRIBUTION WIDTH 14.1 % (9.6-15.2)
[2021-02-19 16:15] LABS: MD NO
[2021-02-19 16:20] LABS: ALANINE AMINOTRANSFERASE 47 U/L (12-78); ALBUMIN 3.8 g/dL (3.4-5.0); ANION GAP 7 mmol/L (5-15); CALCIUM 8.9 mg/dL (8.5-10.1); CHLORIDE 106 mmol/L (98-107); CREATININE 0.75 mg/dL (0.55-1.02)
[2021-02-19 16:25] LABS: ALKALINE PHOSPHATASE 65 U/L (45-117); BILIRUBIN,TOTAL 0.3 mg/dL (0.2-1.0); TOTAL PROTEIN 7.6 g/dL (6.4-8.2)
[2021-02-19 17:39] VITALS: BP 124/74
== END 2021-02-19 17:44 | disposition home or self-care (01) ==
LOC: ED 17:35
DX: R11.2 Nausea with vomiting, unspecified (principal); R10.84 Generalized abdominal pain
CPT/HCPCS: 36415; 76700; 80053; 83690; 84703; 85025; 96361; 96374; 96375; 99284; J0780; J1200; J7030; 99283

== ENCOUNTER 2021-03-29 21:50 | Emergency (ER) | payer MEDICAID ==
[~2021-03-29] VITALS: Ht 157.5 cm; Wt 53.6 kg
[~2021-03-29 21:50] MED LIST changes: +SULF-23 PO; -SULF1TAB24 PO
[2021-03-29] MEDS ORDERED: PROMETHAZINE 25 MG/ML, 1ML ONE (22:11)
[2021-03-29] MEDS ORDERED: HALOPERIDOL 5 MG/ML ONE (22:11)
[2021-03-29] MEDS ORDERED: FAMOTIDINE 20 MG/2 ML ONE (22:12)
[2021-03-29] MEDS ORDERED: MORPHINE SULFATE 4 MG/ML, 1ML ONE (22:12)
[2021-03-29] MEDS ORDERED: ONDANSETRON 2MG/ML, 2ML ONE (22:12)
[2021-03-29 22:22] LABS: BASOPHILS % (AUTO) 1 % (0-1); EOSINOPHILS % (AUTO) 0 % (1-7); LYMPHOCYTES % (AUTO) 20 % (22-44); MEAN CORPUSCULAR HEMOGLOBIN 34.7 pg (27.0-34.8); MEAN PLATELET VOLUME 7.6 fL (7.4-10.4); MONOCYTES % (AUTO) 10 % (2-9); NEUTROPHILS % (AUTO) 70 % (42-75); PLATELET COUNT 367 x10^3/uL (130-400); RED BLOOD COUNT 4.79 x10^6/uL (3.82-5.3); RED CELL DISTRIBUTION WIDTH 13.6 % (9.6-15.2)
[2021-03-29 22:25] LABS: MD NO
[2021-03-29] MEDS ORDERED: ONDANSETRON 2MG/ML, 2ML IVPush ONE (22:30)
[2021-03-29] MEDS ORDERED: PROMETHAZINE 25 MG/ML, 1ML IM ONE (22:30)
[2021-03-29] MEDS ORDERED: MORPHINE SULFATE 4 MG/ML, 1ML IVPush PRN (22:30)
[2021-03-29] MEDS ORDERED: SODIUM CHLORIDE 0.9% 1,000ML IVBOLUS ONE (22:30)
[2021-03-29] MEDS ORDERED: HALOPERIDOL 5 MG/ML IM ONE (22:30)
[2021-03-29] MEDS ORDERED: SODIUM CHLORIDE FLUSH 10ML SYR IVF ONE (22:30)
[2021-03-29] MEDS ORDERED: FAMOTIDINE 20 MG/2 ML IVPush ONE (22:30)
--- NOTE | 2021-03-29 22:34 | NUR ---
PIV PLACED MEDS GIVEN PER MAR LABS SENT
[2021-03-29 22:35] LABS: ALANINE AMINOTRANSFERASE 31 U/L (12-78); ANION GAP 11 mmol/L (5-15); CALCIUM 9.4 mg/dL (8.5-10.1); CHLORIDE 95 mmol/L (98-107); CREATININE 0.79 mg/dL (0.55-1.02)
[2021-03-29 22:40] LABS: ALKALINE PHOSPHATASE 82 U/L (45-117); TOTAL PROTEIN 8.4 g/dL (6.4-8.2)
[2021-03-29] MEDS ORDERED: POTASSIUM CHLORIDE 20 MEQ TAB.ER.PRT ONE (22:50)
[2021-03-29] MEDS ORDERED: POTASSIUM CHLORIDE 20 MEQ TAB.ER.PRT PO ONE (23:00)
[2021-03-29 23:35] VITALS: BP 130/76
== END 2021-03-29 23:37 | disposition home or self-care (01) ==
LOC: ED 22:40
DX: R11.2 Nausea with vomiting, unspecified (principal); E86.0 Dehydration; R10.13 Epigastric pain; F17.200 Nicotine dependence, unspecified, uncomplicated
CPT/HCPCS: 36415; 80053; 80320; 83690; 84703; 85025; 96372; 96374; 96375; 99284; J1630; J2270; J2405; J2550; J7030; G0480

== ENCOUNTER 2021-06-29 08:23 | Emergency (ER) | payer MEDICAID ==
[~2021-06-29] VITALS: Ht 157.5 cm; Wt 60.0 kg
[2021-06-29 08:56] LABS: HCG UR SG 1.017 (1.003-1.030); MICROSCOPIC NOT IND
--- NOTE | 2021-06-29 09:58 | NUR ---
pt changed into gown & pelvic set up ready. on cupboard builder bed.
[2021-06-29] MEDS ORDERED: CEFTRIAXONE 1,000 MG IM ONE (10:30)
--- NOTE | 2021-06-29 10:33 | NUR ---
pelvic completed, pt aware of plan for labs to come back & meds. denies any needs. will ctm.
[2021-06-29] MEDS ORDERED: LIDOCAINE-MPF 1%, 5ML ONE (10:46)
[2021-06-29] MEDS ORDERED: CEFTRIAXONE 250 MG ONE (10:47)
[2021-06-29 11:07] LABS: CLUE CELLS NONE SEEN (NONE SEEN); WET PREP WBCS FEW (FEW)
[2021-06-29] MEDS ORDERED: PLEASE ENTER HEIGHT AND WEIGHT MC SCH (11:30)
[2021-06-29 11:33] VITALS: BP 105/65
== END 2021-06-29 11:35 | disposition home or self-care (01) ==
LOC: ED 10:16
DX: A56.09 Other chlamydial infection of lower genitourinary tract (principal); F17.200 Nicotine dependence, unspecified, uncomplicated
CPT/HCPCS: 81003; 81025; 87210; 87491; 87591; 87808; 96372; 99284; J0696

== ENCOUNTER 2021-08-19 08:12 | Emergency (ER) | payer MEDICAID ==
[~2021-08-19] VITALS: Ht 157.5 cm; Wt 60.1 kg
[2021-08-19 08:15] VITALS: BP 108/63
== END 2021-08-19 10:08 | disposition home or self-care (01) ==
LOC: ED 08:16
DX: R10.32 Left lower quadrant pain (principal); R10.31 Right lower quadrant pain; R10.2 Pelvic and perineal pain